=== PATIENT | male | born 1960 | race Caucasian/White ===

== ENCOUNTER → 2018-03-12 | Outpatient (CLI) | payer OTHER ==
[2018-03-12 12:10] LABS: HEMATOCRIT 41.8 % (42.0-52.0); HEMOGLOBIN 14.8 g/dL (13.5-18.0); MEAN CELL VOLUME 91 fl (78-100); MEAN CORPUSCULAR HEMOGLOBIN 32 pg (27-31); MEAN CORPUSCULAR HGB CONC 35 g/dL (33-37); MEAN PLATELET VOLUME 9.8 fl (7.4-10.4); PLATELET COUNT 184 K/mm3 (130-400); RED BLOOD COUNT 4.58 M/mm3 (4.20-5.60); RED CELL DISTRIBUTION WIDTH 12.8 % (11.5-14.5); WHITE BLOOD COUNT 6.6 K/mm3 (4.8-10.8)
[2018-03-12 12:21] LABS: ALBUMIN 4.4 g/dL (3.5-5.0); BUN/CREATININE RATIO 15.1 (6.0-26.0); CALCIUM 9.1 mg/dL (8.4-10.2); POTASSIUM 4.2 mmol/L (3.6-5.0); TOTAL PROTEIN 7.7 g/dL (6.3-8.2)
[2018-03-12 12:36] LABS: LYMPHOCYTE 24 % (20-51); MONOCYTE 7 % (3-10); NEUTROPHILS 58 % (42-75)
[2018-03-12 13:24] LABS: ERYTHROCYTE SEDIMENTATION RATE 3 mm/hr (0-20)
[2018-03-12 23:20] LABS: TESTOSTERONE 282 ng/dL (221-716)
[2018-03-13 00:18] LABS: CREATININE OTHER SOURCE 91 mg/dL (())
== END ==
LOC: LAB 11:39
PROVIDERS: Internal Medicine
DX: Z00.00 Encounter for general adult medical examination without abnormal findings (principal); Z12.5 Encounter for screening for malignant neoplasm of prostate; Z12.11 Encounter for screening for malignant neoplasm of colon

== ENCOUNTER → 2020-06-23 | Outpatient (CLI) | payer BC ==
[2020-06-23 12:38] LABS: HEMATOCRIT 44.4 % (42.0-52.0); HEMOGLOBIN 15.6 g/dL (13.5-18.0); MEAN CELL VOLUME 90 fl (78-100); MEAN CORPUSCULAR HEMOGLOBIN 32 pg (27-31); MEAN CORPUSCULAR HGB CONC 35 g/dL (33-37); MEAN PLATELET VOLUME 9.5 fl (7.4-10.4); PLATELET COUNT 194 K/mm3 (130-400); RED BLOOD COUNT 4.96 M/mm3 (4.20-5.60); RED CELL DISTRIBUTION WIDTH 13.2 % (11.5-14.5); WHITE BLOOD COUNT 6.5 K/mm3 (4.8-10.8)
[2020-06-23 12:48] LABS: ALBUMIN 4.5 g/dL (3.5-5.0)
[2020-06-23 12:49] LABS: CALCIUM 9.6 mg/dL (8.3-10.5)
[2020-06-23 12:50] LABS: TOTAL PROTEIN 7.1 g/dL (6.4-8.3)
[2020-06-23 12:51] LABS: LYMPHOCYTE 28 % (20-51); MONOCYTE 13 % (3-10); NEUTROPHILS 58 % (42-75)
[2020-06-23 12:52] LABS: TOTAL BILIRUBIN 0.7 mg/dL (0.2-1.2)
[2020-06-23 13:34] LABS: ERYTHROCYTE SEDIMENTATION RATE 2 mm/hr (0-20)
[2020-06-24 01:31] LABS: TESTOSTERONE 335 ng/dL (221-716)
== END ==
LOC: LAB 12:23
PROVIDERS: Internal Medicine
DX: Z00.00 Encounter for general adult medical examination without abnormal findings (principal); Z12.5 Encounter for screening for malignant neoplasm of prostate; Z12.11 Encounter for screening for malignant neoplasm of colon; M10.9 Gout, unspecified; K90.9 Intestinal malabsorption, unspecified

== ENCOUNTER → 2020-08-26 | Outpatient (CLI) | payer BC | LOC: LAB 09:52 | DX: Z20.828 Contact with and (suspected) exposure to other viral communicable diseases (principal) ==

== ENCOUNTER → 2021-09-13 | Outpatient (CLI) | payer BC | LOC: LAB 14:16 | DX: R05.1 Acute cough (principal); Z20.822 Contact with and (suspected) exposure to COVID-19 ==

== ENCOUNTER → 2022-02-08 | Outpatient (CLI) | payer BC | LOC: RAD 08:16 | DX: M54.12 Radiculopathy, cervical region (principal) ==

== ENCOUNTER → 2022-02-10 | Outpatient (CLI) | payer BC | LOC: RAD 14:28 | DX: M50.10 Cervical disc disorder with radiculopathy, unspecified cervical region (principal); M48.02 Spinal stenosis, cervical region ==

== ENCOUNTER → 2024-08-12 | Outpatient (CLI) | payer BC | LOC: CARDREHAB 08:00 | DX: G47.30 Sleep apnea, unspecified (principal) | CPT/HCPCS: G0399 ==